=== PATIENT | female | born 1980 | race Caucasian/White ===

== ENCOUNTER 2019-01-23 06:54 | Emergency (ER) | payer MEDICAID ==
[~2019-01-23] VITALS: Ht 170.2 cm; Wt 66.3 kg
[2019-01-23 07:02] VITALS: BP 107/73; Ht 170.2 cm; Wt 66.3 kg
== END 2019-01-23 08:10 | disposition home or self-care (01) ==
LOC: ED 06:54
DX: S16.1XXA Strain of muscle, fascia and tendon at neck level, initial encounter (principal); M43.6 Torticollis; Z88.0 Allergy status to penicillin; W01.0XXA Fall on same level from slipping, tripping and stumbling without subsequent striking against object, initial encounter; Y93.89 Activity, other specified; Y92.89 Other specified places as the place of occurrence of the external cause; Y99.8 Other external cause status

== ENCOUNTER 2019-03-25 08:02 | Emergency (ER) | payer OTHER ==
[~2019-03-25] VITALS: Ht 170.2 cm; Wt 64.5 kg
[2019-03-25 08:05] VITALS: Ht 170.2 cm; Wt 64.5 kg
[2019-03-25 09:06] VITALS: BP 111/66
== END 2019-03-25 09:06 | disposition home or self-care (01) ==
LOC: ED 08:02
DX: K29.00 Acute gastritis without bleeding (principal); Z88.0 Allergy status to penicillin

== ENCOUNTER 2019-06-09 10:54 | Emergency (ER) | payer OTHER ==
[~2019-06-09] VITALS: Ht 170.2 cm; Wt 62.6 kg
[2019-06-09 11:31] VITALS: Ht 170.2 cm; Wt 62.6 kg
[2019-06-09 13:01] VITALS: BP 128/72
== END 2019-06-09 13:47 | disposition home or self-care (01) ==
LOC: ED 10:54
DX: S39.012A Strain of muscle, fascia and tendon of lower back, initial encounter (principal); Z88.0 Allergy status to penicillin; V49.49XA Driver injured in collision with other motor vehicles in traffic accident, initial encounter; Y93.I9 Activity, other involving external motion; Y92.413 State road as the place of occurrence of the external cause; Y99.8 Other external cause status

== ENCOUNTER 2019-06-23 07:52 | Emergency (ER) | payer OTHER ==
[~2019-06-23] VITALS: Ht 170.2 cm; Wt 63.7 kg
[2019-06-23 08:15] VITALS: Ht 170.2 cm; Wt 63.7 kg
[2019-06-23 13:09] VITALS: BP 1118/60
== END 2019-06-23 13:09 | disposition home or self-care (01) ==
LOC: ED 07:52
DX: S43.402A Unspecified sprain of left shoulder joint, initial encounter (principal); Z88.0 Allergy status to penicillin; V79.9XXA Bus occupant (driver) (passenger) injured in unspecified traffic accident, initial encounter; Y93.I9 Activity, other involving external motion; Y92.413 State road as the place of occurrence of the external cause; Y99.8 Other external cause status